=== PATIENT | female | born 1955 | race Caucasian/White ===

== ENCOUNTER 2016-03-13 18:24 | Emergency (ER) | payer OTHER ==
[~2016-03-13] VITALS: Ht 160 cm; Wt 59.0 kg
[~2016-03-13 18:24] MED LIST: ADOXA100 MG PO; ALBUTEROL2 PUFFS/17 IN; ARTHRITIS PILL PO; BACTRIM DS 8001 TA1 PO; BACTRIM DS 8001 TAB PO; BENZONATATE100 MG PO; CHEWABLE ASPIRI81 MG; CIPRO 500MG TA500 MG PO; DOXYCYCLINE MO100 MG PO; ERYTHROMYCIN1 GM/UDP OP; FLEXERIL10 MG PO; HYDROCODONE1 TABLET PO; KEFLEX 500MG.500 MG PO; MEDROL 4MG. DOSE4 MG PO; PREDNISONE 10MG10 MG PO; PREDNISONE50 MG PO; TORADOL10 M1 PO; TRAMADOL 50MG T50 MG PO
[2016-03-13 20:16] VITALS: BP 162/82
[2016-03-15] MEDS ORDERED: PREDNISONE 20MG20 MG PO (13:52)
[2016-03-15] MEDS ORDERED: CIPRO 500MG TA500 MG PO (13:52)
[2016-03-15] MEDS ORDERED: TESSALON PERLE100 MG PO (13:52)
== END 2016-03-13 20:16 | disposition left against medical advice (07) ==
LOC: ER 18:24
DX: Z53.29 Procedure and treatment not carried out because of patient's decision for other reasons (principal); R07.0 Pain in throat